=== PATIENT | female | born 1955 | race Caucasian/White ===

== ENCOUNTER 2022-02-20 23:39 | Inpatient (IN) ==
[2022-02-21] MEDS ORDERED: Ondansetron 4 MG/2 ML VIAL IVP PRN (01:47)
[2022-02-21] MEDS ORDERED: Acetaminophen 325 MG TABLET PO PRN (01:47)
[2022-02-21] MEDS ORDERED: Naloxone 0.4 MG/ML INJ IVP PRN (01:47)
[2022-02-21] MEDS ORDERED: *HR* Dextrose 50 % in Water (Syg) 50 ML SYRINGE IVP PRN (01:50)
[2022-02-21] MEDS ORDERED: Dextrose Gel 15 GM/37.5 ML TUBE PO PRN ×2 (01:50)
[2022-02-21] MEDS ORDERED: D5% in Water 1,000 ML IVC PRN (01:50)
[2022-02-21] MEDS ORDERED: *HR* HYDROcodone/Acet 5/325 mg TABLET PO PRN (02:04)
[2022-02-21] MEDS: Nystatin Ointment 15 GM TUBE TP SCH ×5 (03:45→21:18)
[2022-02-21] MEDS: GuaiFENesin Liq 200 MG/10 ML UDC PO SCH ×3 (06:28→17:13)
[2022-02-21 06:54] LABS: INR 1.2; Prothrombin Time 13.4 Seconds (9.4-12.1)
[2022-02-21 06:58] LABS: Basophils % 0.3 %; Eosinophils # 0.2 K/mcL (0.0-0.6); Eosinophils % 1.5 %; Hematocrit 37.1 % (35.3-44.9); Hemoglobin 12.3 g/dL (11.5-15.4); Immature Granulocytes % 0.4 % (0-4); Lymphocytes # 2.8 K/mcL (0.6-4.6); Lymphocytes % 21.7 %; Mean Corpuscular HGB Conc 33.2 g/dL (31.6-35.5); Mean Corpuscular Hemoglobin 30.1 pg (28.0-33.3); Mean Corpuscular Volume 90.7 fL (83.0-100.0); Mean Platelet Volume 10.8 fL (9.4-12.4); Monocytes # 0.9 K/mcL (0.0-1.3); Monocytes % 6.6 %; Platelet Count 187 K/mcL (140-400); Red Blood Count 4.09 M/mcL (3.82-4.97); Red Cell Distribution Width 13.4 % (11.5-14.5); Segmented Neutrophils % 69.5 %; White Blood Count 12.9 K/mcL (4.3-11.1)
[2022-02-21 07:09] LABS: Albumin 2.8 g/dL (3.5-5.7); Bilirubin,Direct 0.1 mg/dL (0.0-0.2); Bilirubin,Indirect 0.3 mg/dL (0.0-1.0); Bilirubin,Total 0.4 mg/dL (0.3-1.0); Calcium 7.9 mg/dL (8.6-10.3); Globulin 2.8 g/dL (2.4-3.5); Magnesium 1.4 mg/dL (1.6-2.6); Phosphorous 2.8 mg/dL (2.7-4.5); Potassium 3.8 mEq/L (3.5-5.1); Total Protein 5.6 g/dL (6.4-8.9)
[2022-02-21 07:17] LABS: Thyroid Stimulating Hormone 2.146 mcIU/mL (0.340-5.600)
[2022-02-21] MEDS ORDERED: cefTRIAXone 1,000 MG in 0.9 % Sodium Chloride Mini Bag 100 ML IVPB SCH (09:00)
[2022-02-21] MEDS: Insulin LISPRO 300 UNITS/3 ML VIAL SUBQ SCH ×3 (10:45→17:36)
[2022-02-21] MEDS: Gabapentin 300 MG CAPSULE PO SCH ×3 (11:18→21:18)
[2022-02-21] MEDS: lisinopriL 10 MG TABLET PO SCH (11:18)
[2022-02-21] MEDS: Insulin DETEMIR 100 UNIT/ML X5UNITS SUBQ SCH ×2 (11:20→21:19)
[2022-02-21] MEDS: Fluconazole 100 MG TABLET PO SCH (17:13)
[2022-02-22] MEDS: Ampicillin/Sulbactam 3,000 MG in 0.9 % Sodium Chloride Mini Bag 100 ML IVPB SCH ×4 (00:29→16:35)
[2022-02-22] MEDS: GuaiFENesin Liq 200 MG/10 ML UDC PO SCH ×4 (00:33→16:34)
[2022-02-22 05:58] LABS: Hematocrit 37.1 % (35.3-44.9); Hemoglobin 12.2 g/dL (11.5-15.4); Mean Corpuscular HGB Conc 32.9 g/dL (31.6-35.5); Mean Corpuscular Volume 91.4 fL (83.0-100.0); Mean Platelet Volume 10.4 fL (9.4-12.4); Platelet Count 202 K/mcL (140-400); Red Blood Count 4.06 M/mcL (3.82-4.97); Red Cell Distribution Width 13.6 % (11.5-14.5)
[2022-02-22 06:23] LABS: Potassium 3.8 mEq/L (3.5-5.1)
[2022-02-22] MEDS: Fluconazole 100 MG TABLET PO SCH (08:07)
[2022-02-22] MEDS: Gabapentin 300 MG CAPSULE PO SCH ×3 (08:07→21:19)
[2022-02-22] MEDS: Insulin LISPRO 300 UNITS/3 ML VIAL SUBQ SCH ×3 (08:07→16:35)
[2022-02-22] MEDS: lisinopriL 10 MG TABLET PO SCH (08:07)
[2022-02-22] MEDS: Nystatin Ointment 15 GM TUBE TP SCH ×4 (08:10→21:19)
[2022-02-22] MEDS: Insulin DETEMIR 100 UNIT/ML X5UNITS SUBQ SCH ×2 (09:34→21:19)
[2022-02-22] MEDS ORDERED: Insulin DETEMIR 100 UNIT/ML X5UNITS SUBQ ONE (10:33)
[2022-02-23] MEDS: Ampicillin/Sulbactam 3,000 MG in 0.9 % Sodium Chloride Mini Bag 100 ML IVPB SCH ×4 (00:35→17:29)
[2022-02-23] MEDS: GuaiFENesin Liq 200 MG/10 ML UDC PO SCH ×5 (00:36→22:15)
[2022-02-23] MEDS: *HR* Enoxaparin 40 MG/0.4 ML SYRINGE SQ SCH (06:12)
[2022-02-23 07:11] LABS: Hemoglobin 12.6 g/dL (11.5-15.4); Mean Corpuscular HGB Conc 32.3 g/dL (31.6-35.5); Mean Corpuscular Hemoglobin 29.7 pg (28.0-33.3); Mean Platelet Volume 10.3 fL (9.4-12.4); Platelet Count 217 K/mcL (140-400); Red Blood Count 4.24 M/mcL (3.82-4.97); Red Cell Distribution Width 13.5 % (11.5-14.5); White Blood Count 10.3 K/mcL (4.3-11.1)
[2022-02-23] MEDS: Insulin LISPRO 300 UNITS/3 ML VIAL SUBQ SCH ×3 (07:31→16:19)
[2022-02-23 07:37] LABS: Potassium 3.6 mEq/L (3.5-5.1)
[2022-02-23] MEDS: Nystatin Ointment 15 GM TUBE TP SCH ×4 (08:28→22:15)
[2022-02-23] MEDS: lisinopriL 10 MG TABLET PO SCH (08:28)
[2022-02-23] MEDS: Gabapentin 300 MG CAPSULE PO SCH ×3 (08:28→22:16)
[2022-02-23] MEDS: Fluconazole 100 MG TABLET PO SCH (08:28)
[2022-02-23] MEDS: Insulin DETEMIR 100 UNIT/ML X5UNITS SUBQ SCH ×2 (08:28→22:19)
[2022-02-23] MEDS ORDERED: Perflutren Lipid Microsphere 1.3 ML in 0.9 % Sodium Chloride 8.7 ML IVP PRN (16:11)
[2022-02-23] MEDS ORDERED: Melatonin 3 MG TABLET PO PRN (23:02)
[2022-02-24] MEDS: Ampicillin/Sulbactam 3,000 MG in 0.9 % Sodium Chloride Mini Bag 100 ML IVPB SCH ×4 (00:33→17:40)
[2022-02-24] MEDS: GuaiFENesin Liq 200 MG/10 ML UDC PO SCH ×3 (06:10→17:40)
[2022-02-24] MEDS: *HR* Enoxaparin 40 MG/0.4 ML SYRINGE SQ SCH (06:11)
[2022-02-24] MEDS: Insulin LISPRO 300 UNITS/3 ML VIAL SUBQ SCH ×3 (08:22→17:47)
[2022-02-24] MEDS: lisinopriL 10 MG TABLET PO SCH (09:55)
[2022-02-24] MEDS: Fluconazole 100 MG TABLET PO SCH (09:55)
[2022-02-24] MEDS: Gabapentin 300 MG CAPSULE PO SCH ×2 (09:55→15:22)
[2022-02-24] MEDS: Insulin DETEMIR 100 UNIT/ML X5UNITS SUBQ SCH (09:56)
[2022-02-24] MEDS: Nystatin Ointment 15 GM TUBE TP SCH ×3 (10:03→17:40)
[2022-02-24 15:08] VITALS: BP 112/75; PULSE 64; RESP 18; TEMP 98.5; O2SAT 97
== END 2022-02-24 18:33 | disposition other institution (70) | DRG 689 ==
LOC: INPPIK
PROVIDERS: ADMIT Student in an Organized Health Care Education/Training Program; ATTEND Student in an Organized Health Care Education/Training Program

== ENCOUNTER 2022-02-24 15:50 | Inpatient (IN) ==
[2022-02-24] MEDS ORDERED: Celecoxib 100 MG CAPSULE PO PRN (16:02)
[2022-02-24] MEDS ORDERED: D5% in Water 1,000 ML IVC PRN (16:04)
[2022-02-24] MEDS ORDERED: Dextrose Gel 15 GM/37.5 ML TUBE PO PRN ×2 (16:04)
[2022-02-24] MEDS ORDERED: *HR* Dextrose 50 % in Water (Syg) 50 ML SYRINGE IVP PRN (16:04)
[2022-02-24] MEDS: Insulin LISPRO 300 UNITS/3 ML VIAL SUBQ SCH ×2 (19:14→21:02)
[2022-02-24] MEDS ORDERED: Insulin DETEMIR 100 UNIT/ML per UNIT SUBQ ONE (21:00)
[2022-02-24] MEDS: *HR* Metformin 500 MG TABLET PO SCH (21:03)
[2022-02-24] MEDS: Gabapentin 300 MG CAPSULE PO SCH (21:03)
[2022-02-24] MEDS: Piperacillin/Tazobactam 3.375 GM in 0.9 % Sodium Chloride Mini Bag 100 ML IVPB SCH (23:13)
[2022-02-25] MEDS ORDERED: Piperacillin/Tazobactam 3.375 GM VIAL IVPB SCH
[2022-02-25] MEDS: *HR* Enoxaparin 40 MG/0.4 ML SYRINGE SQ SCH (06:11)
[2022-02-25 06:44] LABS: Basophils % 0.3 %; Eosinophils # 0.2 K/mcL (0.0-0.6); Eosinophils % 2.1 %; Hematocrit 36.1 % (35.3-44.9); Hemoglobin 11.8 g/dL (11.5-15.4); Immature Granulocytes % 0.7 % (0-4); Lymphocytes # 2.7 K/mcL (0.6-4.6); Lymphocytes % 28.9 %; Mean Corpuscular HGB Conc 32.7 g/dL (31.6-35.5); Mean Corpuscular Hemoglobin 30.2 pg (28.0-33.3); Mean Corpuscular Volume 92.3 fL (83.0-100.0); Mean Platelet Volume 10.1 fL (9.4-12.4); Monocytes # 0.6 K/mcL (0.0-1.3); Monocytes % 6.2 %; Neutrophils # 5.8 K/mcL (1.6-8.9); Platelet Count 219 K/mcL (140-400); Red Blood Count 3.91 M/mcL (3.82-4.97); Red Cell Distribution Width 13.6 % (11.5-14.5); Segmented Neutrophils % 61.8 %; White Blood Count 9.3 K/mcL (4.3-11.1)
[2022-02-25 07:04] LABS: Calcium 7.7 mg/dL (8.6-10.3)
[2022-02-25] MEDS: *HR* Metformin 500 MG TABLET PO SCH ×2 (09:37→20:19)
[2022-02-25] MEDS: lisinopriL 10 MG TABLET PO SCH (09:38)
[2022-02-25] MEDS: Insulin DETEMIR 100 UNIT/ML X5UNITS SUBQ SCH ×2 (09:38→20:19)
[2022-02-25] MEDS: Gabapentin 300 MG CAPSULE PO SCH ×3 (09:38→20:19)
[2022-02-25] MEDS: Fluconazole 100 MG TABLET PO SCH (09:38)
[2022-02-25] MEDS: Piperacillin/Tazobactam 3.375 GM in 0.9 % Sodium Chloride Mini Bag 100 ML IVPB SCH ×2 (09:39→16:11)
[2022-02-25] MEDS: Insulin LISPRO 300 UNITS/3 ML VIAL SUBQ SCH ×4 (09:39→20:20)
[2022-02-25] MEDS: *HR* HYDROcodone/Acet 5/325 mg TABLET PO PRN (12:26)
[2022-02-25] MEDS ORDERED: Ondansetron ODT 4 MG TAB.RAPDIS SL PRN (22:17)
[2022-02-26] MEDS: Piperacillin/Tazobactam 3.375 GM in 0.9 % Sodium Chloride Mini Bag 100 ML IVPB SCH ×4 (00:55→23:59)
[2022-02-26] MEDS: *HR* Enoxaparin 40 MG/0.4 ML SYRINGE SQ SCH (05:10)
[2022-02-26] MEDS: *HR* HYDROcodone/Acet 5/325 mg TABLET PO PRN (05:10)
[2022-02-26] MEDS: Insulin DETEMIR 100 UNIT/ML X5UNITS SUBQ SCH ×2 (09:40→20:50)
[2022-02-26] MEDS: Fluconazole 100 MG TABLET PO SCH (09:41)
[2022-02-26] MEDS: lisinopriL 10 MG TABLET PO SCH (09:41)
[2022-02-26] MEDS: Insulin LISPRO 300 UNITS/3 ML VIAL SUBQ SCH ×4 (09:41→20:49)
[2022-02-26] MEDS: *HR* Metformin 500 MG TABLET PO SCH ×2 (09:42→20:48)
[2022-02-26] MEDS: Gabapentin 300 MG CAPSULE PO SCH ×3 (09:42→20:47)
[2022-02-26] MEDS: polyethylene glycoL 3350 17 GM POWD.PACK PO SCH (10:23)
[2022-02-27] MEDS: *HR* Enoxaparin 40 MG/0.4 ML SYRINGE SQ SCH (05:06)
[2022-02-27] MEDS: Piperacillin/Tazobactam 3.375 GM in 0.9 % Sodium Chloride Mini Bag 100 ML IVPB SCH ×2 (09:08→17:06)
[2022-02-27] MEDS: *HR* Metformin 500 MG TABLET PO SCH ×2 (09:09→21:19)
[2022-02-27] MEDS: Insulin LISPRO 300 UNITS/3 ML VIAL SUBQ SCH ×5 (09:09→21:21)
[2022-02-27] MEDS: Gabapentin 300 MG CAPSULE PO SCH ×3 (09:10→21:19)
[2022-02-27] MEDS: polyethylene glycoL 3350 17 GM POWD.PACK PO SCH (09:10)
[2022-02-27] MEDS: Insulin DETEMIR 100 UNIT/ML X5UNITS SUBQ SCH ×2 (09:10→21:22)
[2022-02-27] MEDS: lisinopriL 10 MG TABLET PO SCH (09:10)
[2022-02-27] MEDS: Fluconazole 100 MG TABLET PO SCH (09:10)
[2022-02-27 19:55] VITALS: BP 128/75; PULSE 78; RESP 18; TEMP 98.5; O2SAT 93
== END 2022-02-27 23:59 | disposition other institution (70) | DRG 178 ==
LOC: INPPIK 18:48
PROVIDERS: ADMIT Family Medicine; ATTEND Family Medicine